=== PATIENT | male | born 1960 | race Caucasian/White ===

== ENCOUNTER → 2017-01-13 | Outpatient (CLI) | payer OTHER ==
[~2017-01-13] VITALS: Ht 190.5 cm; Wt 93.4 kg
[~2017-01-13] MED LIST: ADVIL100 M2 PO; ALEVE220 MG PO; CELEBREX 200 M200 M1 PO; DILAUDID 2 MG TA2 MG PO; DIVALPROEX SOD250 M3 PO; FLEXERIL PO; IBUPROFEN 200200 M1 PO; KEFLEX500 MG PO; LORTAB 5-500 T1 EAC1 PO; NEURONTIN 300300 M1 PO; OXYCODONE-ACET1 EAC2 PO; PERCOCET 5-3251 EACH PO; PYRIDIUM200 M1 PO; TAMSULOSIN HCL0.4 M1 PO; TRAMADOL HCL50 MG PO; ULTRAM 50MG TAB50 MG PO; ZOFRAN 4 MG ORAL4 MG PO; ZOFRAN ODT4 MG PO; ZOFRAN4 MG PO
[2017-01-13 07:46] VITALS: BP 136/76
== END | disposition home or self-care (01) ==
LOC: PAIN 06:42
DX: M54.16 Radiculopathy, lumbar region (principal); Z98.890 Other specified postprocedural states

== ENCOUNTER → 2017-09-19 | Outpatient (CLI) | payer OTHER ==
[~2017-09-19] VITALS: Ht 190.5 cm; Wt 96.0 kg
--- NOTE | ~2017-09-19 | HPC ---
[facility] [place] [address] PAIN MANAGEMENT CONSULTATION Name: CHRIS SAMPSON [id number] Admission: 09/19/17 Attend Phys: Sandro Sheikh MD Discharge: Date of : 60 Report #: [id number] THIS REPORT FOR: //name// CC: Max Sheikh DATE OF SERVICE: 09/19/2017 CHIEF COMPLAINT: Pain in the right shoulder. HISTORY OF PRESENT ILLNESS: The patient is here today because he has had progressing pain in his right shoulder. Intensity of this pain is high. He scores it as an 8/10. Significant history is his workout regimen. He goes to the gym 3 days a week and does weight lifting. He does shoulder press with relatively high weight and also does free weights with 40 pounds of lifting away from his body. This exacerbates his pain. He also has pain in his right shoulder when sleeping on his right side. He has tried to back off of weights for up to 1 week, but no longer. Pain continues to be troublesome. He has tried anti-inflammatories with Celebrex 200 mg once daily. With the worsening pain he is concerned that he has a rotator cuff injury. MEDICATIONS: Only Celebrex. ALLERGIES: None. PHYSICAL EXAMINATION: GENERAL: Very fit appearing 57-year old. VITAL SIGNS: Blood pressure 125/82, heart rate 76 and respirations 16. MUSCULOSKELETAL: Examination of the right shoulder reveals pain with external rotation and localized tenderness anteriorly. There is also some pain that radiates through the joint to the back. He has some difficulty with raising his arms above his head due to increased pain and impingement. There is no crepitus and no swelling noted. It should be noted, however, that he has significant strength and is well developed throughout the pectoral muscle groups in his upper arms and shoulder. This indicates that he has been working extensively with heavy weights. IMPRESSION: Right shoulder pain. Considerations include bursitis versus further arthropathy. He has had a single history in the past of shoulder dislocation in his teenage years. Never recurred. Tendinitis is certainly a consideration involving the tendons of the rotator cuff and we discussed the four muscles involved. [facility] [address] [place] [address] PAIN MANAGEMENT CONSULTATION Name: CHRIS SAMPSON Room #: REG [facility].#: [id number] Admission: 09/19/17 Attend Phys: Sandro Sheikh MD Discharge: Date of : 60 Report #: [id number] An MRI is ordered to give us a baseline understanding of his condition. I doubt seriously that surgery or arthroscopy are indicated. He may benefit from a cortisone injection. May need to back off on his workout. He seems reluctant to do that, but he was counseled today. <ELECTRONICALLY SIGNED> By: Sandro Sheikh MD 10/10/17 1408 [id number] [id number] Sandro Sheikh MD /deon
[2017-09-19 13:22] VITALS: BP 125/82
== END ==
LOC: PAIN 07:23
DX: M25.511 Pain in right shoulder (principal)

== ENCOUNTER → 2018-02-06 | Outpatient (CLI) | payer OTHER ==
[~2018-02-06] VITALS: Ht 190.5 cm; Wt 95.2 kg
--- NOTE | ~2018-02-06 | HPC ---
[facility] [place] [place] [address] PAIN MANAGEMENT CONSULTATION Name: CHRIS SAMPSON ALAN Room #: REG LOPEZIfeanyi Roach.#: [id number] Admission: 02/06/18 Attend Phys: Sandro Sheikh MD Discharge: Date of : 60 Report #: [id number] THIS REPORT FOR: //name// CC: Max Sheikh DATE OF SERVICE: 02/06/2018 SUBJECTIVE: Followup visit for recurring pain in the right hip. The patient is here today with a complaint of pain in the right hip. He remains very physically active. He played golf over the weekend, has done some yard work. He is finding that he is having more persistent and recurring pain that began in and around the trochanter, radiates posteriorly. It does not radiate into the leg and does not have features of sciatica. He has always responded favorably to injections of triamcinolone. He has tried to manage this conservatively, but without success, and came today hopeful that I could help with diagnosis and management. I noted from his record that he has had some longstanding intermittent recurring hip pain on this side that radiates into the groin. We do not have advanced studies, but we have x-rays from 4 years ago that shows spurring of the hip that are suggestive of some degenerative changes and early osteoarthritis. We had a lengthy discussion today with a model and also text, but discussing how these changes cause pain and they are typical radiating pattern. Also, has localized discomfort over the trochanteric bursa. This is the area of exquisite tenderness described today. He has taken Celebrex with limited improvement, has used heat and ice. MEDICATIONS: Celebrex. ALLERGIES: None. PHYSICAL EXAMINATION: GENERAL: Pleasant, fit appearing 57-year-old. VITAL SIGNS: Blood pressure 133/81, heart rate 82, respirations 16. MUSCULOSKELETAL: Moves easily and quickly from sitting to standing position, ambulates without difficulty. Straight leg raising reveals tightness in the hamstring, but no radiculopathy on the right. Internal and external rotation of the hip is performed with only minimal discomfort. Significant localized tenderness and discomfort is located overlying the right trochanteric bursa. There is no redness, swelling or inflammation. IMPRESSION: Trochanteric bursitis. [address] [address] PAIN MANAGEMENT CONSULTATION Name: ADRIÁNCHRIS Room #: REG GAIL Gooden#: [id number] Admission: 02/06/18 Attend Phys: Sandro Sheikh MD Discharge: Date of : 60 Report #: [id number] RECOMMENDATIONS: 1. Continue Celebrex with cautions regarding that ARANGO-2 inhibiting nonsteroidal anti-inflammatory drugs. 2. Use of heat and ice described. PROCEDURE: Trochanteric bursa injection. DESCRIPTION OF PROCEDURE: He was placed in the left lateral decubitus position. Skin was prepped with ChloraPrep. A 25-gauge needle was gently used to infiltrate around the trochanteric bursa and posterior to the trochanter near the gluteal bursa. I injected a total of 4 mL of 0.5% bupivacaine mixed with 40 mg of triamcinolone. He tolerated the procedure well. Pain was reduced at discharge. No medications ordered. Followup visit as needed. <ELECTRONICALLY SIGNED> By: Sandro Sheikh MD 02/13/18 1558 [id number] Sandro Sheikh MD /nt
[2018-02-06 11:01] VITALS: BP 133/81
== END | disposition home or self-care (01) ==
LOC: PAIN 06:53
DX: M70.62 Trochanteric bursitis, left hip (principal); Z79.899 Other long term (current) drug therapy